=== PATIENT | female | born 1945 | race Caucasian/White ===

== ENCOUNTER 2023-06-26 18:22 | Emergency (ER) | payer MEDICARE, SELFPAY ==
[2023-06-26 18:26] VITALS: BP 134/84
[2023-06-26] MEDS: TYLENOL 1000 MG PO (19:31)
--- NOTE | 2023-06-26 20:25 | ED.GENMED ---
History of Present Illness
General
Chief Complaint: Fall
Time Seen by Provider: 06/26/23 19:21
Travel History
Have you had any contact with someone who has COVID-19?: No
Do you have any symptoms of coronavirus? Fever > 100 degrees, chills, cough, shortness of breath, sore throat, loss of taste or smell, muscle aches, or headache?: No
History of Present Illness
History of Present Illness:
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 States she was walking outside of her home and slipped, fell backward
striking the back of her head. There was a loss of consciousness that she has retrograde amnesia to the event. On arrival she has no complaints, denies headache, vision changes, neck pain, extremity paresthesias, chest pain, or shortness of
breath. Does not take any anticoagulants or antiplatelets.
Past History
Past History
ED Past Medical History: Other (Chronic Microglilial encephalomylitis) and Other (Bilateral CoVid pneumonia)
Social History
Tobacco: Non-smoker
Review of Systems
Review of Systems
Allergies reviewed?: Yes
All Other Systems: ROS reviewed and negative except as documented in HPI and ROS
Phy Exam
Physical Exam
Physical Exam:
GEN: Well appearing, NAD, WDWN
Eyes: PERRLA, EOMs intact, no scleral icterus
HENT: Small abrasion to the midline parietal scalp with no active bleeding, no crepitus, oral mucosa moist. No midline cervical spine tenderness, normal cervical range of motion bilaterally
Lungs: CTAB, no wheezes, rales, rhonchi, normal chest wall excursion
Cardiac: RRR, no M/R/G, no peripheral edema. Radial pulses 2+ bilat
Abdomen: S, NT, ND, NABS, no masses or hepatosplenomegaly
Neuro: AO x 3, no focal deficits to BUE/BLE, normal sensation throughout
MSK: No gross deformity or ecchymosis.
Skin: No rashes, petechiae. Normal color, no pallor or jaundice.
Psych: Calm, cooperative, proper hygiene
Course
Orders/Labs/Results
Orders:
Orders
06/26/23 18:29
CT Head W/o Iv Contrast Urgent
Comment:
Reason For Exam: fall
06/26/23 19:24
EKG [Electrocardiogram (*1)] Urgent
Reason for Study: Syncope
EKG- Treatment ONCE
06/26/23 19:30
Acetaminophen [Tylenol] 1,000 mg .ROUTE .STK-MED ONE
06/26/23 19:31
Acetaminophen [Tylenol] 1,000 mg PO NOW STA
06/26/23 21:20
Complete Blood Count/With Diff Urgent
Comprehensive Metabolic Panel Urgent
Abnormal Lab Results
06/26/23
21:20
MCH 31.4 H pg
(27.0-31.0)
MCHC 32.9 L g/dL
(33.0-37.0)
RDW 16.7 H %
(11.5-14.5)
Abs Immat Gran (auto) 0.1 H 10^3/uL
(0-0.05)
Absolute Neuts (auto) 7.8 H 10^3/uL
(1.4-6.5)
Absolute Lymphs (auto) 1.0 L 10^3/uL
(1.2-3.4)
Neutrophils % 83.6 H %
(42.2-75.2)
Lymphocytes % 10.7 L %
(20.5-51.1)
BUN 21 H mg/dl
(7-17)
Glucose 139 H mg/dl
(70-99)
06/26/23 21:20
06/26/23 21:20
Vital Signs
Initial and Last Documented VS:
Initial Vital Signs
Temp Pulse Resp BP Pulse Ox
97.4 F 83 16 134/84 95
06/26/23 18:26 06/26/23 18:26 06/26/23 18:26 06/26/23 18:26 06/26/23 18:26
Last Documented Vital Signs
Temp Pulse Resp BP Pulse Ox
97.4 F 77 18 131/72 93
06/26/23 18:26 06/26/23 22:15 06/26/23 22:15 06/26/23 22:05 06/26/23 22:15
MDM/Problems Addressed
MDM/Problems Addressed:
Head CT identified 2 small intracranial hemorrhages. Patient will require transfer to a trauma center for further monitoring. Discussed the case with Dr. Neville through [facility] who accepts the patient as a level 2 trauma transfer to the
ER. Patient remained neurologically intact and stable in the emergency department. She is clinically stable and has no signs of C-spine injury thus imaging is not warranted from our perspective but will be transferred in a cervical collar per
trauma receiving hospital protocol.
*Critical Care Note
Total Time (30-74mins, 75-104mins- exclusive of procedures): 30 mins
comment:
Critical care time: 30 minutes
Critical care time was exclusive of: Separately billable procedures, treating other patients, and teaching time
Critical care was necessary to treat or prevent imminent or life-threatening deterioration of the following conditions: Intracranial hemorrhage
Critical care time spent personally by me on the following activities:
[x] Review of old charts
[x] Obtaining history from patient or surrogate
[x] Ordering and review of the laboratory studies
[x] Ordering and review of radiographic studies
[x] Ordering and performing treatments and interventions
[x] Patient patient's response to treatment
[x] Development of treatment plan with patient or surrogate
ED Attending Note
-
Portions of this chart may have been created with voice recognition software.� Occasional wrong word or��sound alike� substitutions may have occurred due to the inherent limitations of voice recognition software.
Discharge Plan
Departure
Patient Disposition: Acute Care Hospital
Date of Disposition: 06/26/23
Time of Disposition: 21:05
Discharge Problem:
Traumatic intracranial hemorrhage
Prescriptions:
No Action
folic acid 1 MG tablet
1 mg PO DAILY
azathioprine [Imuran] 50 MG tablet
100 mg PO BID
spironolactone 12.5 MG tablet
12.5 mg PO DAILY Qty: 30 11RF
Rx Instructions:
Take spironolactone 12.5 mg (1/2 of a 25 mg tablet) daily
carvedilol 3.125 MG tablet
3.125 mg PO BID Qty: 60 11RF
aspirin 81 MG tablet,chewable
81 mg PO DAILY 0RF
furosemide 20 MG tablet
20 mg PO DAILY Qty: 30 11RF
lisinopril 2.5 MG tablet
2.5 mg PO DAILY Qty: 30 11RF
Referrals:
Ally Hoang DO [Family Provider] -
Hospital Transfer
Other hospital: [facility]
I certify that the patient requires transfer: Yes
Discussed case with accepting physician: Jamin
Reason for transfer: higher level of care
Interventions
Interventions:
*Risk Screen - Suicide Last Done: 06/26/23 18:26
*General Assessment Last Done: 06/26/23 18:26
*Neglect/Abuse Screening Last Done: 06/26/23 18:26
ED- Fall Risk Assessment Last Done: 06/26/23 19:11
*ED COVID-19 Vaccine History Last Done: 06/26/23 18:26
ED-Musculoskeletal Assessment Last Done: 06/26/23 19:11
ED- Neurological Assessment Last Done: 06/26/23 19:11
ED-Skin Assessment Last Done: 06/26/23 19:11
[2023-06-26 21:34] LABS: % Basophils 0.4 % (0-2); % Eosinophils 0.6 % (0-6); % Immature Granulocytes 0.5 % (0-0.5); % Lymphocytes 10.7 % (20.5-51.1); % Monocytes 4.2 % (1.7-9.3); % Neutrophils 83.6 % (42.2-75.2); Absolute Eosinophils 0.1 10^3/uL (0-0.7); Absolute Immature Granulocytes 0.1 10^3/uL (0-0.05); Absolute Monocytes 0.4 10^3/uL (0.1-0.6); Absolute Neutrophils 7.8 10^3/uL (1.4-6.5); Hematocrit 42.8 % (37.0-47.0); Hemoglobin 14.1 g/dL (12.0-16.0); Mean Corp Hgb Conc. 32.9 g/dL (33.0-37.0); Mean Corpuscular Hgb 31.4 pg (27.0-31.0); Mean Corpuscular Volume 95.3 fL (81.0-99.0); Mean Platelet Volume 9.6 fL (7.4-10.4); Nucleated Red Blood Cells % 0 %; Platelet Count 331 10^3/uL (130-400); Red Blood Cell Count 4.49 10^6/uL (4.20-5.40); Red Cell Dist. Width 16.7 % (11.5-14.5); White Blood Cell Count 9.3 10^3/uL (4.8-10.8)
[2023-06-26 21:55] LABS: ALT (SGPT) 28 U/L (0-35); AST (SGOT) 33 U/L (14-36); Albumin 4.3 g/dl (3.5-5.0); Alkaline Phosphatase 82 U/L (38-126); Blood Urea Nitrogen 21 mg/dl (7-17); Calcium 9.4 mg/dl (8.4-10.2); Carbon Dioxide 22 mmol/L (22-30); Chloride 106 mmol/L (98-107); Glucose 139 mg/dl (70-99); Potassium 4.4 mmol/L (3.5-5.1); Sodium 137 mmol/L (135-145); Total Bilirubin 0.9 mg/dl (0.2-1.3); Total Protein 6.8 g/dl (6.3-8.2); eGFR > 60.00
[2023-06-26 22:05] VITALS: BP 131/72
[2023-06-26 22:35] VITALS: BMI 27.4
[2023-06-26 23:00] VITALS: BP 116/66
== END 2023-06-27 00:12 | disposition short-term general hospital (02) ==
LOC: EMR 18:22
PROVIDERS: Physician Assistant; EMERGENCY PHYSICIAN Emergency Medicine; FAMILY PHYSICIAN Family Medicine
DX: S06.5X9A Traumatic subdural hemorrhage with loss of consciousness of unspecified duration, initial encounter (principal); W01.0XXA Fall on same level from slipping, tripping and stumbling without subsequent striking against object, initial encounter
CPT/HCPCS: 99291; 70450; 80053; 85025; 93005

== ENCOUNTER → 2023-07-14 14:34 | Outpatient (REF) | payer MEDICARE, SELFPAY | LOC: DHCBS MAIN 14:34 | PROVIDERS: ATTENDING PHYSICIAN Internal Medicine Cardiovascular Disease; FAMILY PHYSICIAN Family Medicine | DX: I42.8 Other cardiomyopathies (principal); I50.22 Chronic systolic (congestive) heart failure; I34.0 Nonrheumatic mitral (valve) insufficiency; I35.0 Nonrheumatic aortic (valve) stenosis; I35.1 Nonrheumatic aortic (valve) insufficiency | CPT/HCPCS: 93306 ==